=== PATIENT | male | born 1965 | race Caucasian/White ===

== ENCOUNTER 2017-11-28 09:16 | Emergency (ER) | payer OTHER ==
[2017-11-28] MEDS: ONDANSETRON 4 MG INJ IV (10:04)
[2017-11-28] MEDS: HYDROmorphONE 1 MG/5 ML IV SYRINGE IV (10:04)
[2017-11-28] MEDS: SOD CHLORIDE 0.9% 1,000 ML IV (10:04)
[2017-11-28 10:10] LABS: ADD MAN DIFF? NO
[2017-11-28 10:11] LABS: WHITE BLOOD COUNT 9.7 10^3/ul (4.8-10.8)
[2017-11-28 10:11] LABS: BASOPHILS % 0.4 % (0.0-2.0); EOSINOPHILS % 0.3 % (0.0-7.0); HEMATOCRIT 43.8 % (42.0-52.0); HEMOGLOBIN 14.8 g/dl (14.0-18.0); LYMPHOCYTES # 1.1 10^3/ul (0.8-2.9); LYMPHOCYTES % 11.4 % (15.0-51.0); MEAN CORPUSCULAR HEMOGLOBIN 31.1 pg (29.0-33.0); MEAN CORPUSCULAR HGB CONC 33.8 g/dl (32.0-37.0); MEAN PLATELET VOLUME 10.4 fl (7.4-10.4); MONOCYTE # 0.4 10^3/ul (0.3-0.9); MONOCYTES % 3.9 % (0.0-11.0); NEUTROPHIL # 8.1 10^3/ul (1.6-7.5); NEUTROPHILS % 83.6 % (39.0-77.0); PLATELET COUNT 275 10^3/UL (140-415); RED BLOOD COUNT 4.76 10^6/ul (4.70-6.10); RED CELL DISTRIBUTION WIDTH 13.1 % (11.5-14.5)
[2017-11-28 10:29] LABS: ALANINE AMINOTRANSFERASE 44 IU/L (13-69); ALBUMIN 4.9 g/dl (3.3-4.9); ALBUMIN/GLOBULIN RATIO 1.28; ALKALINE PHOSPHATASE 124 IU/L (42-121); ANION GAP 17 (8-16); ASPARTATE AMINO TRANSFERASE 37 IU/L (15-46); BILIRUBIN,INDIRECT 0.5 mg/dl (0-1.1); BILIRUBIN,TOTAL 0.5 mg/dl (0.2-1.3); BLOOD UREA NITROGEN 16 mg/dl (7-20); CALCIUM 9.5 mg/dl (8.4-10.2); CARBON DIOXIDE 27 mmol/L (21-31); CHLORIDE 102 mmol/L (97-110); GLUCOSE 130 mg/dl (70-220); LIPASE 142 U/L (23-300); POTASSIUM 4.3 mmol/L (3.5-5.1); SODIUM 142 mmol/L (135-144); TOTAL PROTEIN 8.7 g/dl (6.1-8.1)
== END 2017-11-28 12:25 | disposition home or self-care (01) ==
LOC: E/R 09:16
DX: K80.20 Calculus of gallbladder without cholecystitis without obstruction (principal)
CPT/HCPCS: 36415; 76705; 80053; 83690; 85025; 96374; 96375; 99285-25

== ENCOUNTER 2018-01-13 13:11 | Day surgery (SDC) | payer OTHER ==
[~2018-01-13 13:11] MED LIST: LIDOCAINE 2% (SDV) 5 ML INJ
[2018-01-13] MEDS ORDERED: SOD CHLORIDE 0.9% 1,000 ML IV (15:00)
[2018-01-13] MEDS ORDERED: CEFAZOLIN 2 GM/50 ML (PMX) 50 ML IVPB (15:00)
[2018-01-13] MEDS ORDERED: PROPOFOL 20 ML (16:16)
[2018-01-13] MEDS ORDERED: FENTAnyl 50 MCG/ML VIAL (16:19)
[2018-01-13] MEDS ORDERED: ACETAMINOPHEN 1000MG/100ML IV 100 ML (16:20)
[2018-01-13] MEDS ORDERED: CEFAZOLIN 1 GM INJ (16:29)
[2018-01-13] MEDS ORDERED: ONDANSETRON 4 MG INJ (16:29)
[2018-01-13] MEDS ORDERED: DEXAMETHASONE 4 MG/ML 1 ML INJ (16:29)
[2018-01-13] MEDS ORDERED: ROCURONIUM 50 MG INJ (16:29)
[2018-01-13] MEDS ORDERED: MIDAZOLAM 1 MG/ML 2 ML INJ IV (16:30)
[2018-01-13] MEDS ORDERED: METOCLOPRAMIDE 10 MG INJ IV (16:30)
[2018-01-13] MEDS ORDERED: EPHEDrine SULFATE 50 MG/5 ML SYG IV (16:30)
[2018-01-13] MEDS ORDERED: HYDROmorphONE 1 MG/5 ML IV SYRINGE IV ×2 (16:30)
[2018-01-13] MEDS ORDERED: LABETALOL HCL 20MG INJ IV (16:30)
[2018-01-13] MEDS ORDERED: ALBUTEROL 0.083% (NEB) 2.5 MG/3 ML AMP HHN (16:30)
[2018-01-13] MEDS ORDERED: DIPHENHYDRAMINE 50 MG INJ IV (16:30)
[2018-01-13] MEDS ORDERED: OXYCODONE/ACETAMINOPHEN (5/325) TAB PO (16:30)
[2018-01-13] MEDS ORDERED: FENTAnyl 50 MCG/ML VIAL IV ×3 (16:30)
[2018-01-13] MEDS: BUPIVACAINE 0.25% (MPF) 30 ML INJ (16:43)
[2018-01-13] MEDS ORDERED: NEOSTIGMINE 3 MG/3 ML SYRINGE (17:16)
[2018-01-13] MEDS ORDERED: GLYCOPYRROLATE 0.4 MG INJ (17:16)
[2018-01-13] MEDS ORDERED: HYDROCODONE/APAP (5/325) TAB PO (17:30)
[2018-01-13] MEDS: ONDANSETRON 4 MG INJ IV (17:41)
[2018-01-13] MEDS: HYDROmorphONE 1 MG/5 ML IV SYRINGE IV (17:41)
[2018-01-13] MEDS: hydrALAzine 20 MG INJ IV ×2 (17:49→17:58)
[2018-01-13] MEDS: OXYCODONE/ACETAMINOPHEN (5/325) TAB PO (18:28)
[2018-01-13] MEDS: MEPERIDINE 25 MG INJ IV (19:09)
== END 2018-01-13 19:24 | disposition home or self-care (01) ==
LOC: SDS 13:11
DX: K81.1 Chronic cholecystitis (principal); E78.5 Hyperlipidemia, unspecified
CPT/HCPCS: 47562; 88304

== ENCOUNTER 2019-03-22 09:14 | Emergency (ER) | payer OTHER ==
[2019-03-22] MEDS: SOD CHLORIDE 0.9% 1,000 ML IV (11:56)
[2019-03-22] MEDS: KETOROLAC 15 MG INJ IV (11:56)
[2019-03-22 12:16] LABS: ADD MAN DIFF? NO
[2019-03-22 12:19] LABS: BASOPHIL # 0.1 10^3/ul (0.0-0.1); BASOPHILS % 0.4 % (0.0-2.0); EOSINOPHILS # 0.2 10^3/ul (0.0-0.5); EOSINOPHILS % 1.4 % (0.0-7.0); HEMATOCRIT 43.6 % (42.0-52.0); HEMOGLOBIN 14.2 g/dl (14.0-18.0); LYMPHOCYTES # 2.1 10^3/ul (0.8-2.9); LYMPHOCYTES % 15.3 % (15.0-51.0); MEAN CORPUSCULAR HEMOGLOBIN 30.8 pg (29.0-33.0); MEAN CORPUSCULAR HGB CONC 32.6 g/dl (32.0-37.0); MEAN CORPUSCULAR VOLUME 94.6 fl (82.0-101.0); MEAN PLATELET VOLUME 10.3 fl (7.4-10.4); MONOCYTES % 7.2 % (0.0-11.0); NEUTROPHIL # 10.4 10^3/ul (1.6-7.5); NEUTROPHILS % 75.3 % (39.0-77.0); PLATELET COUNT 252 10^3/UL (140-415); RED BLOOD COUNT 4.61 10^6/ul (4.70-6.10); RED CELL DISTRIBUTION WIDTH 12.8 % (11.5-14.5)
[2019-03-22 12:19] LABS: WHITE BLOOD COUNT 13.8 10^3/ul (4.8-10.8)
[2019-03-22 12:24] LABS: ADD UMIC YES; UR ASCORBIC ACID NEGATIVE (NEGATIVE); UR BILIRUBIN (Dip) NEGATIVE (NEGATIVE); UR BLOOD (Dip) 2+ mg/dL (NEGATIVE); UR CLARITY CLEAR (CLEAR); UR COLOR YELLOW (YELLOW); UR GLUCOSE (Dip) NEGATIVE (NEGATIVE); UR KETONES (Dip) NEGATIVE (NEGATIVE); UR LEUKOCYTE ESTERASE (Dip) NEGATIVE Leu/ul (NEGATIVE); UR NITRITE (Dip) NEGATIVE (NEGATIVE); UR RBC 10 /HPF (0-5); UR SPECIFIC GRAVITY (Dip) 1.017 (1.003-1.030); UR TOTAL PROTEIN (Dip) NEGATIVE (NEGATIVE); UR UROBILINOGEN (Dip) NEGATIVE (NEGATIVE); UR WBC 0 /HPF (0-5)
[2019-03-22 12:32] LABS: ALANINE AMINOTRANSFERASE 30 IU/L (13-69); ALBUMIN 4.3 g/dl (3.3-4.9); ALBUMIN/GLOBULIN RATIO 1.13; ALKALINE PHOSPHATASE 90 IU/L (42-121); ANION GAP 9 (5-13); ASPARTATE AMINO TRANSFERASE 35 IU/L (15-46); BILIRUBIN,INDIRECT 1.4 mg/dl (0-1.1); BILIRUBIN,TOTAL 1.4 mg/dl (0.2-1.3); BLOOD UREA NITROGEN 14 mg/dl (7-20); CALCIUM 9.5 mg/dl (8.4-10.2); CARBON DIOXIDE 28 mmol/L (21-31); CHLORIDE 100 mmol/L (97-110); Estimated GFR > 60 mL/min (>60); GLUCOSE 96 mg/dl (70-220); LIPASE 102 U/L (23-300); SODIUM 137 mmol/L (135-144); TOTAL PROTEIN 8.1 g/dl (6.1-8.1)
[2019-03-22] MEDS: CIPROFLOXACIN 500 MG TAB PO (13:21)
[2019-03-22] MEDS: metroNIDAZOLE 500 MG TAB PO (13:21)
== END 2019-03-22 13:31 | disposition home or self-care (01) ==
LOC: E/R 09:14
DX: K57.32 Diverticulitis of large intestine without perforation or abscess without bleeding (principal); F17.210 Nicotine dependence, cigarettes, uncomplicated
CPT/HCPCS: 36415; 74176; 80053; 81001; 83690; 85025; 96374; 99285-25